=== PATIENT | female | born 1955 | race Caucasian/White ===

== ENCOUNTER → 2019-12-11 12:11 | Outpatient (CLI) | payer BC, SELFPAY ==
--- NOTE | ~2019-12-11 | MM_ITS ---
EXAMINATION: MM screening [facility] BI w edy HISTORY: Screening TECHNIQUE: Craniocaudal and mediolateral oblique 3-D tomosynthesis images were obtained and synthetic 2-D images were generated. CAD analysis was submitted and interpreted. COMPARISON: Comparison to multiple prior studies sequentially, with oldest reviewed study dated 06/26. BREAST PARENCHYMAL COMPOSITION: There are scattered areas of fibroglandular density. FINDINGS: There is no evidence of suspicious mass, calcification, or architectural distortion to sugg est malignancy in either breast. There has been no suspicious interval change. IMPRESSION: 1. No mammographic evidence of malignancy. 2. Recommend routine screening mammography in one year. BI-RADS Category 1: Negative Reviewed, dictated and finalized at location D.
--- NOTE | ~2019-12-11 | DEXA_ITS ---
Bone Density Report Name: Kayla Castillo Age: 64 Sex: Female Ethnicity: White Date of : 1955 Indication: osteopenia; parental hip fracture; height loss; postmenopausal Referring Provider: JOSE OGLESBY Study: Bone densitometry was performed. Exam Date: December 11, 2019 Accession number: [id number] Bone Density: Region BMD T-score Z-score Classification AP Spine (L1-L4) 0.902 -1.3 0.5 Osteopenia Femoral Neck (Left) 0.580 -2.4 -0.9 Osteopenia Total Hip (Left) 0.681 -2.1 -0.9 Osteopenia Femoral Neck (Right) 0.614 -2.1 -0.6 Osteopenia Total Hip (Right) 0.684 -2.1 -0.9 Osteopenia Total Hip Mean 0.683 -2.1 -0.9 Osteopenia World Health Organization criteria for BMD impression classify patients as: Normal (T-score at or above -1.0), Osteopenia (T-score between -1.0 and -2.5), or Osteoporosis (T-score at or below -2.5). 10-year Fracture Risk(1): Major Osteoporotic Fracture 22% Hip Fracture 2.8% Reported Risk Factors: [place] (), Neck BMD=0.580, BMI=25.8, parental fracture (1) FRAX(R) Version 3.08. Fracture probability calculated for an untreated patient. Fracture probability may be lower if the patient has received treatment. Previous Exams: Region Exam Age BMD T-score BMD Change BMD Change Date g/cm2 vs Baseline vs Previous AP Spine(L1-L4) 12/11/2019 64 0.902 -1.3 0.068* -0.004 08/07/2017 62 0.906 -1.3 0.072* 0.002 06/26/2015 60 0.903 -1.3 0.069* 0.016 06/10/2013 58 0.887 -1.5 0.053* -0.006 05/26/2011 56 0.893 -1.4 0.059* 0.013 11/03/2008 53 0.880 -1.5 0.046* 0.046* 02/09/2007 51 0.834 -1.9 Total Hip(Left) 12/11/2019 64 0.681 -2.1 0.019 -0.002 08/07/2017 62 0.682 -2.1 0.021 -0.005 06/26/2015 60 0.687 -2.1 0.026 -0.014 06/10/2013 58 0.701 -2.0 0.040* -0.008 05/26/2011 56 0.708 -1.9 0.047* 0.021 11/03/2008 53 0.688 -2.1 0.026 0.026 02/09/2007 51 0.661 -2.3 Total Hip(Right) 12/11/2019 64 0.684 -2.1 -0.001 -0.020 08/07/2017 62 0.704 -1.9 0.019 0.008 06/26/2015 60 0.696 -2.0 0.012 -0.005 06/10/2013 58 0.702 -2.0 0.017 -0.023 05/26/2011 56 0.725 -1.8 0.040* -0.011 11/03/2008 53 0.736 -1.7 0.051* 0.051* 02/09/2007 51 0.685 -2.1
== END ==
PROVIDERS: Visit Provider Obstetrics & Gynecology Gynecology
DX: Z12.31 Encounter for screening mammogram for malignant neoplasm of breast (principal); Z78.0 Asymptomatic menopausal state; M85.88 Other specified disorders of bone density and structure, other site; M85.852 Other specified disorders of bone density and structure, left thigh; M85.851 Other specified disorders of bone density and structure, right thigh
CPT/HCPCS: 77063; 77067; 77080

== ENCOUNTER → 2020-12-29 12:04 | Outpatient (CLI) | payer BC, SELFPAY ==
--- NOTE | ~2020-12-29 | MM_ITS ---
EXAMINATION: MM screening [facility] BI w edy HISTORY: Screening mammogram TECHNIQUE: Craniocaudal and mediolateral oblique 3-D tomosynthesis images were obtained and synthetic 2-D images were generated. CAD analysis was submitted and interpreted. COMPARISON: 12/11/2019, 08/27/2018, 08/07/2017 BREAST PARENCHYMAL COMPOSITION: The breasts are almost entirely fatty. FINDINGS: There is no evidence of suspicious mass, calcification, or architectural distortion to sugg est malignancy in either breast. There has been no suspicious interval change. IMPRESSION: 1. No mammographic evidence of malignancy. 2. Recommend routine screening mammography in one year. BI-RADS Category 1: Negative Reviewed, dictated and finalized at location A.
== END ==
PROVIDERS: Visit Provider Obstetrics & Gynecology Gynecology
DX: Z12.31 Encounter for screening mammogram for malignant neoplasm of breast (principal)
CPT/HCPCS: 77063; 77067